=== PATIENT | female | born 1940 | race Caucasian/White ===

== ENCOUNTER 2016-09-25 16:22 | Inpatient (IN) | payer MEDICARE, MEDICAID ==
[2016-09-25] MEDS ORDERED: Haloperidol Lactate 5 mg/mL 1mL Vial IM STA (16:32)
[2016-09-25] MEDS ORDERED: Haloperidol Lactate 5 mg/mL 1mL Vial ONE (16:36)
--- NOTE | 2016-09-25 16:38 | ED Physician Chart ---
Chief Complaint/HPI - Patient Information Date Seen:: 09/25/16 Time Seen:: 16:30 Chief Complaint:: agitation History of Present Illness:: Patient is sent from the care home for agitation to be admitted to [facility] is medically stable. Allergies:: Allergies Allergy/AdvReac Type Severity Reaction Status Date / Time cefazolin [From Ancef] Allergy Verified 09/10/16 18:53 meropenem Allergy Verified 09/10/16 18:53 Penicillins Allergy Verified 09/10/16 18:54 prochlorperazine Allergy Verified 09/10/16 18:53 [From Compazine] Historian:: EMS Review:: Nurse's Note Reviewed Review of Systems - Review of Systems General/Constitutional: No fever, No chills Skin: No skin lesions Head: No headache Eyes: No loss of vision ENT: No earache Neck: No neck pain Cardio Vascular: No chest pain Pulmonary: No SOB GI: No nausea, No vomiting G/U: No dysuria Musculoskeletal: No bone or joint pain Endocrine: No polyuria Psychiatric: Prior psych history Hematopoietic: No bruising Allergic/Immuno: No urticaria Neurological: No syncope Past Medical History - Past Medical History Past Medical History: HTN, DM, CHF, Asthma/COPD, Dementia, Other ( atherosclerotic heart disease; is affective disorder) Family History: Other (unavailable) Social History: Care Facility Surgical History: other (unavailable) Psychiatricy History: Other (schizoaffective disorder) Medication: Reviewed Family Medical History - Family Member Father History Unknown: Yes Ethnicity: Unknown Living Status: Unknown Hx Family Cancer: (UNKNOWN) Hx Family Coronary Artery Disease: (UNKNOWN) Hx Family Congestive Heart Failure: (UNKNOWN) Hx Family Hypertension: (UNKNOWN) Hx Family Stroke: (UNKNOWN) Hx Family Diabetes: (UNKNOWN) Hx Family Seizures: (UNKNOWN) Hx Family Dementia: (UNKNOWN) Hx Family AIDS: (UNKNOWN) Hx Family HIV: No Hx Family COPD: (UNKNOWN) Hx Family Hepatitis: (UNKNOWN) Hx Family Psychiatric Problems: (UNKNOWN) Hx Family Tuberculosis: (UNKNOWN) Mother History Unknown: Yes Ethnicity: Unknown Living Status: Unknown Hx Family Cancer: (unknown) Hx Family Coronary Artery Disease: (unknown) Hx Family Congestive Heart Failure: (unknown) Hx Family Hypertension: (unknown) Hx Family Stroke: (unknown) Hx Family Diabetes: (unknown) Hx Family Seizures: (unknown) Hx Family Dementia: (unknown) Hx Family AIDS: (unknown) Hx Family COPD: (unknown) Hx Family Hepatitis: (unknown) Hx Family Psychiatric Problems: (unknown) Hx Family Tuberculosis: (unknown) Physical Exam - Physical Examination General/Constitutional: Awake, Well-developed, well-nourished, Alert Other Gen/Cons comments:: Yelling, screaming, flailing around on the gurney Head: Atraumatic Eyes: Lids, conjuctiva normal, PERRL Skin: Nl inspection ENMT: External ears, nose nl Neck: No nuchal rigidity Respiratory: Nl effort/Exclusion, Clear to Auscultation Cardio Vascular: RRR GI: No tenderness/rebounding/guarding : No CVA tenderness Extremities: No tenderness or effusion Neuro/Psych: No focal deficits Assessment - Assessment General Assessment: patient refuses all tests ED Septic Shock - . Is Septic Shock (SBP<90, OR Lactate>4 mmol\L) present?: No Reassessment (Disposition) - Reassessment Reassessment Condition:: Improved - Diagnosis Diagnosis:: metabolic encephalopathy; extreme agitation - Patient Disposition Admitted to:: Med/Surg Spoke to:: Yogesh Gallegos Admitting Medical Physician:: Yogesh Gallegos Condition at Disposition:: Stable, Improved
[2016-09-25] MEDS ORDERED: Maalox 30 mL Cup PO PRN (19:29)
[2016-09-25] MEDS ORDERED: Magnesium Hydroxide (MOM) 30 mL UDC PO PRN (19:29)
[2016-09-25] MEDS ORDERED: Atorvastatin Calcium 10 MG TAB PO SCH (21:00)
--- NOTE | 2016-09-25 23:46 | Admit Criteria Form ---
Admit Criteria Forms - Admit Criteria Diagnosis: PSYCHIATRIC DISORDERS (Place 'X' for any and all applicable criteria): Ongoing inpatient care may be needed for 1 or more of the following(1)(2)(3)(4)( 6)(7)(8): [ ]I. Danger to self or others not manageable at lower level of care. [ ]II. Grave disability (eg, inability to perform self care necessary at lower level of care) [X ]III. Agitation or inappropriate behavior interfering with care for primary condition (eg, attempting to discontinue lines or drains prematurely, unable to cooperate with respiratory care) [ ]IV. Severe disability or disorder indicated by ALL of the following: [ ]a) Severe behavioral health disorder-related symptoms or condition indicated by 1 or more of the following: [ ]i) Severe problem with cognition, memory, judgment, or impulse control [ ]ii) Severe clinical manifestations (eg, hallucinations, delusions, other acute psychotic symptoms, mary, extreme agitation or anxiety) [ ]b) Patient management at lower level of care is not feasible until acute intervention or modification is initiated. Extended stay beyond goal length of stay for the primary condition may be needed until ALLof the following are present(1)(2)(3)(4)(722)(23): [ ]a) Danger to self or others is absent or manageable at lower level of care [ ]b) Behavior crisis management, including physical or chemical restraints, is required and is not available at a lower level of care. [ ]c) Behavioral symptoms (e.g., agitation, somnolence, inappropriate behavior) are present, and are not manageable at a lower level of care. [ ]d) Patient cannot understand follow-up treatment and crisis plan. [ ]e) Provider and supports are sufficiently available at lower level of care. [ ]f) Patient can participate (e.g., verify absence of plan for harm) and is in needed of monitoring. The original [facility] Aptible content created by [facility] [employer] has been revised. The portions of the content which have been revised are identified through the use of italic text or in bold, and [facility] [employer] has neither reviewed nor approved the modified material. All other unmodified content is copyright [facility]. Please see references footnoted in the original [facility] edition 2017 Admit Criteria Met?: Yes
[2016-09-25 23:47] LABS: ALB/GLOB RATIO 1.2 (1.0-1.8); ALKALINE PHOSPHATASE 51 U/L (34-104); ANION GAP 6.8 (7.0-16.0); BILIRUBIN,TOTAL 0.4 mg/dL (0.3-1.0); BUN - UREA NITROGEN 20 mg/dL (7-25); CALCIUM SERUM 9.4 mg/dL (8.6-10.3); CARBON DIOXIDE 26.2 mEq/L (21.0-31.0); CHLORIDE 98 mEq/L (98-107); GLUCOSE 108 mg/dL (70-105); SGOT 16 U/L (13-39); SGPT/ALT 10 U/L (7-52); SODIUM SERUM 127 mEq/L (136-145)
[2016-09-25 23:50] LABS: % EOSINOPHILS 1.9 % (0.0-5.0); % LYMPHOCYTES 26.4 % (20.0-50.0); % MONOCYTES 13.3 % (2.0-10.0); % NEUTROPHILS 58.4 % (40.0-80.0); HEMOGLOBIN 11.3 gm/dL (11.7-16.1); MEAN CELL VOLUME 83.3 fl (81-100); MEAN CORPUSCULAR HEMOGLOBIN 28.4 pg (27.0-31.0); MEAN CORPUSCULAR HGB CONC 34.2 pg (28.0-36.0); MEAN PLATELET VOLUME 8.2 fl; NEUTROPHILE ABSOLUTE 3.7 Th/cmm (1.8-8.0); RED BLOOD COUNT 3.95 Mil/cmm (3.80-5.20); RED CELL DISTRIBUTION WIDTH 13.2 % (11.5-20.0); WHITE BLOOD COUNT 6.4 Th/cmm (4.8-10.8)
[2016-09-25 23:58] LABS: HEMATOCRIT 32.9 % (35.0-45.0)
[2016-09-25 23:59] LABS: PLATELET COUNT 88 Th/cmm (150-400)
[2016-09-26] MEDS: Ferrous Sulfate 325 MG TAB PO SCH ×2 (08:55→17:44)
[2016-09-26 11:00] LABS: % BASOPHILS 0.6 % (0.0-2.0); % EOSINOPHILS 1.6 % (0.0-5.0); % LYMPHOCYTES 25.3 % (20.0-50.0); % MONOCYTES 13.5 % (2.0-10.0); HEMATOCRIT 37.7 % (35.0-45.0); HEMOGLOBIN 12.6 gm/dL (11.7-16.1); MEAN CELL VOLUME 86.3 fl (81-100); MEAN CORPUSCULAR HEMOGLOBIN 28.7 pg (27.0-31.0); MEAN CORPUSCULAR HGB CONC 33.3 pg (28.0-36.0); MEAN PLATELET VOLUME 7.3 fl; NEUTROPHILE ABSOLUTE 3.2 Th/cmm (1.8-8.0); RED BLOOD COUNT 4.37 Mil/cmm (3.80-5.20); RED CELL DISTRIBUTION WIDTH 13.3 % (11.5-20.0); WHITE BLOOD COUNT 5.3 Th/cmm (4.8-10.8)
[2016-09-26 11:05] LABS: PLATELET COUNT 111 Th/cmm (150-400)
[2016-09-26 11:12] LABS: ANION GAP 5.4 (7.0-16.0); BUN - UREA NITROGEN 17 mg/dL (7-25); BUN/CREATININE RATIO 18.9; CALCIUM SERUM 9.6 mg/dL (8.6-10.3); CARBON DIOXIDE 29.7 mEq/L (21.0-31.0); CHLORIDE 100 mEq/L (98-107); CREATININE - SERUM 0.9 mg/dL (0.6-1.2); GLUCOSE 133 mg/dL (70-105); POTASSIUM SERUM 4.1 mEq/L (3.5-5.1); SODIUM SERUM 131 mEq/L (136-145)
[2016-09-26] MEDS ORDERED: VTE Chemical Prophylaxis Screen/Admission MC PRN (14:46)
[2016-09-26 22:35] LABS: URINE BILIRUBIN NEGATIVE (NEGATIVE); URINE BLOOD NEGATIVE (NEGATIVE); URINE COLOR YELLOW; URINE GLUCOSE (UA) NEGATIVE (NEGATIVE); URINE KETONE NEGATIVE (NEGATIVE); URINE PH 6.5; URINE PROTEIN NEGATIVE (NEGATIVE); URINE UROBILINOGEN 0.2 E.U./dL (0.2 - 1.0)
[2016-09-26 22:36] LABS: URINE BACTERIA MODERATE /hpf (NONE SEEN); URINE EPITHELIAL CELLS FEW /lpf (FEW); URINE RBC 0-2 /hpf (0-5)
[2016-09-27] MEDS: Ferrous Sulfate 325 MG TAB PO SCH ×2 (10:07→17:10)
[2016-09-28] MEDS: Ferrous Sulfate 325 MG TAB PO SCH ×2 (09:48→17:57)
[2016-09-29] MEDS: Ferrous Sulfate 325 MG TAB PO SCH (08:12)
--- NOTE | 2016-09-29 14:50 | General Progress Note ---
Objective - Results Result Diagrams: 09/26/16 10:45 09/26/16 10:45 Recent Labs: Laboratory Last Values WBC 5.3 Th/cmm (4.8-10.8) 09/26/16 10:45 RBC 4.37 Mil/cmm (3.80-5.20) 09/26/16 10:45 Hgb 12.6 gm/dL (11.7-16.1) 09/26/16 10:45 Hct 37.7 % (35.0-45.0) D 09/26/16 10:45 MCV 86.3 fl (81-100) 09/26/16 10:45 MCH 28.7 pg (27.0-31.0) 09/26/16 10:45 MCHC Differential 33.3 pg (28.0-36.0) 09/26/16 10:45 RDW 13.3 % (11.5-20.0) 09/26/16 10:45 Plt Count 111 Th/cmm (150-400) L D 09/26/16 10:45 MPV 7.3 fl 09/26/16 10:45 Neutrophils % 59.0 % (40.0-80.0) 09/26/16 10:45 Lymphocytes % 25.3 % (20.0-50.0) 09/26/16 10:45 Monocytes % 13.5 % (2.0-10.0) H 09/26/16 10:45 Eosinophils % 1.6 % (0.0-5.0) 09/26/16 10:45 Basophils % 0.6 % (0.0-2.0) 09/26/16 10:45 Sodium 131 mEq/L (136-145) L 09/26/16 10:45 Potassium 4.1 mEq/L (3.5-5.1) 09/26/16 10:45 Chloride 100 mEq/L (98-107) 09/26/16 10:45 Carbon Dioxide 29.7 mEq/L (21.0-31.0) 09/26/16 10:45 Anion Gap 5.4 (7.0-16.0) L 09/26/16 10:45 BUN 17 mg/dL (7-25) 09/26/16 10:45 Creatinine 0.9 mg/dL (0.6-1.2) 09/26/16 10:45 Est GFR ( Amer) TNP 09/26/16 10:45 Est GFR (Non-Af Amer) TNP 09/26/16 10:45 BUN/Creatinine Ratio 18.9 09/26/16 10:45 Glucose 133 mg/dL (70-105) H 09/26/16 10:45 Calcium 9.6 mg/dL (8.6-10.3) 09/26/16 10:45 Total Bilirubin 0.4 mg/dL (0.3-1.0) 09/25/16 23:00 AST 16 U/L (13-39) 09/25/16 23:00 ALT 10 U/L (7-52) 09/25/16 23:00 Alkaline Phosphatase 51 U/L (34-104) 09/25/16 23:00 Total Protein 6.1 gm/dL (6.0-8.3) 09/25/16 23:00 Albumin 3.3 gm/dL (3.7-5.3) L 09/25/16 23:00 Globulin 2.8 gm/dL 09/25/16 23:00 Albumin/Globulin Ratio 1.2 (1.0-1.8) 09/25/16 23:00 TSH 1.82 uIU/ml (0.34-5.60) 09/25/16 23:00 Urine Source RANDOM 09/26/16 22:00 Urine Color YELLOW 09/26/16 22:00 Urine Clarity SLIGHT HAZY (CLEAR) 09/26/16 22:00 Urine pH 6.5 09/26/16 22:00 Ur Specific [place] 1.020 (1.005-1.030) 09/26/16 22:00 Urine Protein NEGATIVE mg/dL (NEGATIVE) 09/26/16 22:00 Urine Glucose (UA) NEGATIVE mg/dL (NEGATIVE) 09/26/16 22:00 Urine Ketones NEGATIVE mg/dL (NEGATIVE) 09/26/16 22:00 Urine Blood NEGATIVE (NEGATIVE) 09/26/16 22:00 Urine Nitrate NEGATIVE (NEGATIVE) 09/26/16 22:00 Urine Bilirubin NEGATIVE (NEGATIVE) 09/26/16 22:00 Urine Urobilinogen 0.2 E.U./dL (0.2 - 1.0) 09/26/16 22:00 Ur Leukocyte Esterase TRACE (NEGATIVE) H 09/26/16 22:00 Urine RBC 0-2 /hpf (0-5) 09/26/16 22:00 Urine WBC 10-25 /hpf (0-5) H 09/26/16 22:00 Ur Epithelial Cells FEW /lpf (FEW) 09/26/16 22:00 Urine Bacteria MODERATE /hpf (NONE SEEN) 09/26/16 22:00 RPR NONREACTIVE (NONREACTIVE) 09/25/16 23:00 - Physical Exam Vitals and I&O: Vital Signs Temp 97.7 F 09/29/16 13:51 Pulse 67 09/29/16 13:51 Resp 19 09/29/16 13:51 BP 110/45 09/29/16 13:51 Pulse Ox 98 09/29/16 13:51 Intake & Output 09/28/16 09/29/16 09/29/16 18:59 06:59 18:59 Intake Total 780 Balance 780 Weight (lbs) 98.883 kg 100.244 kg Intake: Oral 780 Other: # Voids 3 # Bowel Movements 0 Active Medications: Current Medications Acetaminophen (Tylenol) 650 mg PO Q4HR PRN PRN Reason: pain Stop: 11/24/16 19:28 Last Admin: 09/28/16 21:19 Dose: 650 mg Al Hydrox/Mg Hydrox/Simethicone (Maalox) 30 ml PO Q4HR PRN PRN Reason: GI DISTRESS Stop: 11/24/16 19:28 Benztropine Mesylate (Cogentin) 0.5 mg PO TID [facility] Stop: 11/24/16 20:59 Last Admin: 09/29/16 13:15 Dose: 0.5 mg Bisacodyl (Dulcolax 10 Mg Supp) 10 mg RC DAILY PRN PRN Reason: Constipation Stop: 11/24/16 19:28 Divalproex Sodium (Depakote Dr) 500 mg PO BID [facility] Stop: 11/25/16 08:59 Last Admin: 09/29/16 08:10 Dose: 500 mg Docusate Sodium (Colace) 250 mg PO DAILY [facility] Stop: 11/25/16 08:59 Last Admin: 09/29/16 08:10 Dose: 250 mg Enalapril Maleate (Vasotec) 5 mg PO DAILY [facility] Stop: 11/25/16 08:59 Last Admin: 09/29/16 08:19 Dose: 5 mg Ferrous Sulfate (Iron) 325 mg PO BID JESUS Stop: 11/25/16 08:59 Last Admin: 09/29/16 08:12 Dose: 325 mg Furosemide (Lasix) 40 mg PO DAILY JESUS Stop: 11/25/16 08:59 Last Admin: 09/29/16 08:12 Dose: 40 mg Heparin Sodium (Porcine) (Heparin) 5,000 units SUBQ Q12HR JESUS Stop: 11/27/16 08:59 Last Admin: 09/29/16 08:10 Dose: 5,000 units Lorazepam (Ativan) 1 mg IVP Q4HR PRN; Protocol PRN Reason: Anxiety Stop: 11/24/16 19:28 Magnesium Hydroxide (Milk Of Magnesia) 30 ml PO HS PRN PRN Reason: Constipation Stop: 11/24/16 19:28 Memantine (Namenda) 5 mg PO BID JESUS Stop: 11/25/16 08:59 Last Admin: 09/29/16 08:12 Dose: 5 mg Miscellaneous (Vte Chemical Prophylaxis Screen/ Admission) 1 ea MC PRN PRN PRN Reason: PROTOCOL Stop: 11/25/16 14:45 Miscellaneous (Clinical Monitoring) 1 ea MC DAILY PRN PRN Reason: ON HEPARIN Stop: 11/25/16 14:45 Risperidone (Risperdal) 2 mg PO BID JESUS PRN Reason: Protocol Stop: 11/25/16 08:59 Last Admin: 09/29/16 08:11 Dose: 2 mg Simvastatin (Zocor) 20 mg PO HS JESUS Stop: 11/24/16 20:59 Last Admin: 09/28/16 21:00 Dose: 20 mg Trazodone HCl (Desyrel) 25 mg PO HS JESUS PRN Reason: Protocol Stop: 11/24/16 20:59 Last Admin: 09/28/16 21:00 Dose: 25 mg - Procedures Procedures: Procedures Procedure Code Date GROUP PSYCHOTHERAPY 48269 04/24/15 GROUP PSYCHOTHERAPY [id number] 04/24/15 OTHER GROUP THERAPY 94.44 07/06/14 Assessment/Plan - Problem List Patient Problems: All Active Problems Arthritis (Acute) M19.90 Arthritis associated with another disorder (Acute) M19.90 Ataxia (Acute) R27.0 CHF (congestive heart failure) (Acute) I50.9 DELUSIONAL AND LABILE BEHAVIOR (Acute) Dementia (Acute) F03.90 Diabetes (Acute) E11.9 Difficulty in walking (Acute) R26.2 Disorder of joint (Acute) M25.9 GERD (gastroesophageal reflux disease) (Acute) K21.9 Hyperlipidemia (Acute) E78.5 Hypertension (Acute) I10 Schizoaffective disorder (Acute) F25.9 Seizure (Acute)
== END 2016-09-29 18:00 | DRG 640 ==
LOC: ER 16:22 → MSI 18:08
PROVIDERS: ADMIT Internal Medicine; ATTEND Internal Medicine
DX: E87.1 Hypo-osmolality and hyponatremia (principal); G93.41 Metabolic encephalopathy; I50.9 Heart failure, unspecified; I11.0 Hypertensive heart disease with heart failure; F03.90 Unspecified dementia, unspecified severity, without behavioral disturbance, psychotic disturbance, mood disturbance, and anxiety; J44.9 Chronic obstructive pulmonary disease, unspecified; E11.9 Type 2 diabetes mellitus without complications; I25.10 Atherosclerotic heart disease of native coronary artery without angina pectoris; F25.8 Other schizoaffective disorders; M19.90 Unspecified osteoarthritis, unspecified site; K21.9 Gastro-esophageal reflux disease without esophagitis; E78.5 Hyperlipidemia, unspecified; Z88.0 Allergy status to penicillin; Z88.1 Allergy status to other antibiotic agents; Z88.8 Allergy status to other drugs, medicaments and biological substances
CPT/HCPCS: 36415-UA; 80048-TC; 80053-TC; 81001-TC; 84443-TC; 85025-TC; 86592-TC; 87086-90; 93005; J1200; J1630; J1644; J2060; Z7610

== ENCOUNTER 2018-01-05 14:03 | Inpatient (IN) | payer MEDICARE, MEDICAID ==
--- NOTE | 2018-01-05 14:23 | ED Physician Chart ---
ED Chief Complaint/HPI - Patient Information Date Seen:: 01/05/18 Time Seen:: 14:10 Chief Complaint:: Agitation History of Present Illness:: onset x 3 days of agitation and hostile/aggressive behavior; no report of SIs, trauma, H/As, neck pain, C/P, SOB, Abd. Pain, A/N/V/D/C, fever, chills, or urinary s/s Allergies:: Allergies Allergy/AdvReac Type Severity Reaction Status Date / Time cefazolin [From Ancef] Allergy Verified 09/10/16 18:53 meropenem Allergy Verified 09/10/16 18:53 Penicillins Allergy Verified 09/10/16 18:54 prochlorperazine Allergy Verified 09/10/16 18:53 [From Compazine] Historian:: Patient, EMS Review:: Nurse's Note Reviewed, Old Chart Reviewed, EMS run form Reviewed ED Review of Systems - Review of Systems General/Constitutional: No fever, No chills, No weight loss, No weakness, No diaphoresis, No edema, No loss of appetite Skin: No skin lesions, No rash, No bruising Head: No headache, No light-headedness Eyes: No loss of vision, No pain, No diplopia ENT: No earache, No nasal drainage, No sore throat, No tinnitus Neck: No neck pain, No swelling, No thyromegaly, No stiffness, No mass noted Cardio Vascular: No chest pain, No palpitations, No PND, No orthopnea, No edema Pulmonary: No SOB, No cough, No sputum, No wheezing GI: No nausea, No vomiting, No diarrhea, No pain, No melena, No hematochezia, No constipation, No hematemesis G/U: No dysuria, No frequency, No hematuria, No nacturia Milk Collector: No vaginal discharge, No abnormal vaginal bleed, No contraction Musculoskeletal: No bone or joint pain, No back pain, No muscle pain Endocrine: No polyuria, No polydipsia Psychiatric: Prior psych history, No depression, Anxiety, No suicidal ideation, No homicidal ideation, No auditory hallucination, No visual hallucination Hematopoietic: No bruising, No lymphadenopathy Allergic/Immuno: No urticaria, No angioedema Neurological: No syncope, No focal symptoms, No weakness, No paresthesia, No headache, No seizure, No dizziness, No confusion, No vertigo ED Past Medical History - Past Medical History Obtainable: Yes Past Medical History: HTN, Dyslipidemia Family History: HTN Social History: Non Smoker, No Alcohol, No Drug Use, Single, Care Facility Surgical History: None Psychiatricy History: Bipolar Medication: Reviewed Family Medical History - Family Member Father History Unknown: Yes Ethnicity: Unknown Living Status: Unknown Hx Family Cancer: (UNKNOWN) Hx Family Coronary Artery Disease: (UNKNOWN) Hx Family Congestive Heart Failure: (UNKNOWN) Hx Family Hypertension: (UNKNOWN) Hx Family Stroke: (UNKNOWN) Hx Family Diabetes: (UNKNOWN) Hx Family Seizures: (UNKNOWN) Hx Family Dementia: (UNKNOWN) Hx Family AIDS: (UNKNOWN) Hx Family HIV: No Hx Family COPD: (UNKNOWN) Hx Family Hepatitis: (UNKNOWN) Hx Family Psychiatric Problems: (UNKNOWN) Hx Family Tuberculosis: (UNKNOWN) Mother History Unknown: Yes Ethnicity: Unknown Living Status: Unknown Hx Family Cancer: (unknown) Hx Family Coronary Artery Disease: (unknown) Hx Family Congestive Heart Failure: (unknown) Hx Family Hypertension: (unknown) Hx Family Stroke: (unknown) Hx Family Diabetes: (unknown) Hx Family Seizures: (unknown) Hx Family Dementia: (unknown) Hx Family AIDS: (unknown) Hx Family COPD: (unknown) Hx Family Hepatitis: (unknown) Hx Family Psychiatric Problems: (unknown) Hx Family Tuberculosis: (unknown) ED Physical Exam - Physical Examination General/Constitutional: Awake, Well-developed, well-nourished, Alert, No distress, GCS 15, Non-toxic appearing, Ambulatory Head: Atraumatic Eyes: Lids, conjuctiva normal, PERRL, EOMI Skin: Nl inspection, No rash, No skin lesions, No ecchymosis, Well hydrated, No lymphadenopathy ENMT: External ears, nose nl, Nasal exam nl, Lips, teeth, gums nl Neck: Nontender, Full ROM w/o pain, No JVD, No nuchal rigidity, No bruit, No mass, No stridor Respiratory: Nl effort/Exclusion, Clear to Auscultation, No Wheeze/Rhonchi/Rales Cardio Vascular: RRR, No murmur, gallop, rubs, NL S1 S2, Carotid/Femoral/Distal pulses equal bilaterally GI: No tenderness/rebounding/guarding, No organomegaly, No hernia, Normal BS's, Nondistended, No mass/bruits, No McBurney tenderness : No CVA tenderness Extremities: No tenderness or effusion, Full ROM, normal strength in all extremities, No edema, Normal digits & nails Neuro/Psych: Alert/oriented, DTR's symmetric, Normal sensory exam, Normal motor strength, Judgement/insight normal, Mood normal, Normal gait, No focal deficits Other Neuro/Psych comments:: + Psychomotor Agitation; no SIs; Mood/Affect: Labile Misc: Normal back, No paraspinal tenderness ED Labs/Radiology/EKG Results - Lab Results Comments:: Reviewed - EKG Interpretations EKG Time:: 14:45 Rate & Rhythm: 76; NSR Comments:: non-specific st-t changes ED Septic Shock - . Is Septic Shock (SBP<90, OR Lactate>4 mmol\L) present?: No ED Reassessment (Disposition) - Reassessment Reassessment Condition:: Improved - Diagnosis Diagnosis:: Agitation; Medical Clearance; Psychosis; Bipolar Disorder - Aftercare/Follow up Instructions Aftercare/Follow-Up Instructions:: Counseled pt regarding lab results/diagnosis & need follow up, Counseled pt & family regarding lab results/diagnosis & need follow up - Patient Disposition Discharge/Transfer:: Acute Care w/in this hosp Admitted to:: [facility] Condition at Disposition:: Stable, Improved
[2018-01-05 14:40] LABS: % BASOPHILS 0.5 % (0.0-2.0); % EOSINOPHILS 2.1 % (0.0-5.0); % LYMPHOCYTES 24.8 % (20.0-50.0); % MONOCYTES 9.3 % (2.0-10.0); % NEUTROPHILS 63.3 % (40.0-80.0); EOSINOPHILE ABSOLUTE 0.1 Th/cmm (0.1-0.4); HEMATOCRIT 36.1 % (41.0-60); HEMOGLOBIN 12.2 gm/dL (12-16); LYMPHOCYTE ABSOLUTE 1.3 Th/cmm (1.5-3.0); MEAN CELL VOLUME 89.3 fl (81-100); MEAN CORPUSCULAR HGB CONC 33.6 pg (28.0-36.0); MEAN PLATELET VOLUME 7.2 fl; MONOCYTE ABSOLUTE 0.5 Th/cmm (0.3-1.0); NEUTROPHILE ABSOLUTE 3.5 Th/cmm (1.8-8.0); PLATELET COUNT 140 Th/cmm (150-400); RED BLOOD COUNT 4.05 Mil/cmm (3.80-5.20); RED CELL DISTRIBUTION WIDTH 12.3 % (11.5-20.0); WHITE BLOOD COUNT 5.4 Th/cmm (4.8-10.8)
[2018-01-05 15:01] LABS: ACETAMINOPHEN < 10.0 ug/mL (10.0-30.0); ALB/GLOB RATIO 1.3 (1.0-1.8); ALBUMIN 3.9 gm/dL (3.7-5.3); ALKALINE PHOSPHATASE 51 U/L (34-104); ANION GAP 10.9 (7.0-16.0); BILIRUBIN,TOTAL 0.3 mg/dL (0.3-1.0); BUN - UREA NITROGEN 24 mg/dL (7-25); CALCIUM SERUM 9.5 mg/dL (8.6-10.3); CARBON DIOXIDE 28.1 mEq/L (21.0-31.0); CHLORIDE 98 mEq/L (98-107); CHOLESTEROL 132 mg/dL (<200); CREATININE - SERUM 0.9 mg/dL (0.6-1.2); GLUCOSE 121 mg/dL (70-105); HDL -HIGH DENSITY LIPOPROTEIN 61 mg/dL (23-92); SALICYLATES (ASPIRIN) < 25.0 mg/L (30.0-100.0); SGOT 16 U/L (13-39); SGPT/ALT 11 U/L (7-52); SODIUM SERUM 133 mEq/L (136-145); TRIGLYCERIDES 57 mg/dL (<150)
[2018-01-05 16:15] VITALS: BP 109/77
[2018-01-05] MEDS ORDERED: Maalox 30 mL Cup PO PRN (16:15)
[2018-01-05] MEDS ORDERED: Fleet Enema 135 mL RC PRN (16:24)
[2018-01-05] MEDS ORDERED: Magnesium Hydroxide (MOM) 30 mL UDC PO PRN (16:24)
[2018-01-05 16:27] LABS: URINE SOURCE CLEAN C
[2018-01-05 16:33] LABS: URINE BILIRUBIN NEGATIVE (NEGATIVE); URINE BLOOD NEGATIVE (NEGATIVE); URINE GLUCOSE (UA) NEGATIVE (NEGATIVE); URINE KETONE NEGATIVE (NEGATIVE); URINE LEUKOCYTE ESTERASE SMALL (NEGATIVE); URINE NITRATE NEGATIVE (NEGATIVE); URINE PROTEIN NEGATIVE (NEGATIVE); URINE UROBILINOGEN 0.2 E.U./dL (0.2 - 1.0)
[2018-01-05 16:39] LABS: URINE CLARITY CLEAR (CLEAR); URINE COLOR YELLOW; URINE MICROSCOPIC INDICATED? YES
[2018-01-05 16:40] LABS: URINE EPITHELIAL CELLS MODERATE /lpf (FEW); URINE RBC 0-2 /hpf (0-5)
[2018-01-05 16:41] LABS: URINE BACTERIA 1+ /hpf (NONE SEEN)
[2018-01-05 16:56] LABS: AMPHETAMINE URINE NEGATIVE (NEGATIVE); BARBITURATES URINE NEGATIVE (NEGATIVE); BENZODIAZEPINES QUAL URINE POSITIVE (NEGATIVE); CANNABINOID THC NEGATIVE (NEGATIVE); COCAINE METABOLITE QUAL URINE NEGATIVE (NEGATIVE); METHADONE URINE NEGATIVE (NEGATIVE); METHAMPHETAMINES QUAL URINE NEGATIVE (NEGATIVE); OPIATES (MORPHINE) QUAL. URINE NEGATIVE (NEGATIVE); PHENCYCLIDINE (PCP) URINE NEGATIVE (NEGATIVE); TRICYCLICS (TCA) QUAL. URINE NEGATIVE (NEGATIVE)
[2018-01-05] MEDS: Atorvastatin Calcium 10 MG TAB PO SCH (20:39)
--- NOTE | 2018-01-05 21:08 | History & Physical ---
ADMIT DATE: 01/05/2018 INTERNAL MEDICINE CONSULTATION HISTORY OF PRESENT ILLNESS: The patient is a 77-year-old female, the patient of mine. CURRENT MEDICAL PROBLEMS: Include CHF, COPD, hypertension, coronary artery disease, hyperlipidemia, peptic ulcer disease, arthritis, osteoporosis. SOCIAL HISTORY: No current history of smoking or alcohol abuse. FAMILY HISTORY: Not available. REVIEW OF SYSTEMS: Minimal short of breath. No nausea, no vomiting, no abdominal pain. Extensive arthritic pain. PHYSICAL EXAMINATION: GENERAL: Average female, in no obvious respiratory distress. VITAL SIGNS: Include a blood pressure 140/80, heart rate 80, respiration rate of 18. SKIN: Show no cellulitis. HEENT: Normal conjunctivae. NECK: Supple. LUNGS: Show occasional rhonchi, occasional crepitation, no bronchial breathing. CARDIOVASCULAR SYSTEM: First and second heart sounds are normal. No gallops. Systolic present. ABDOMEN: Soft, minimal epigastric. Bowel sounds are present and good. EXTREMITIES: Show arthritis. NEUROLOGIC: The patient has dementia. LABORATORY DATA: White count 5.4, hemoglobin 12.2, hematocrit 36.1, platelet of 140. Sodium 133, potassium 4, chloride 98, bicarbonate 28.1, BUN 24, creatinine 0.9, blood sugar of 121. Urine is negative. LFTs are normal. MEDICAL DIAGNOSES: As I dictated above. MEDICATIONS: Current medicine include Tylenol, Maalox, Lipitor, Cogentin, Dulcolax, Depakote, Colace, Vasotec, iron supplementation, and Lasix. JOB# [id number]
[2018-01-06] MEDS: Ferrous Sulfate 325 MG TAB PO SCH ×2 (08:52→16:51)
[2018-01-06] MEDS: Multivitamin Tab PO SCH (08:53)
[2018-01-06] MEDS: Atorvastatin Calcium 10 MG TAB PO SCH (20:29)
--- NOTE | 2018-01-06 22:56 | Progress Notes ---
DATE: 01/06/2018 INTERNAL MEDICINE CONSULTATION FOLLOWUP SUBJECTIVE: The patient is a 77-year-old female. Current medical problems include diabetes mellitus, COPD, CHF, hypertension, coronary artery disease, arthritis, peptic ulcer disease. CHIEF COMPLAINT: No new symptoms. OBJECTIVE: VITAL SIGNS: Stable. LUNGS: Show occasional rhonchi, occasional crepitation, no bronchial breathing. HEART EXAM: Frist and second heart sound are normal. No gallops. Systolic present. ABDOMEN: Soft. Bowel sounds are present and good. EXTREMITIES: Arthritis. NEUROLOGICAL: Dementia. PLAN: Continue current medical management. Psych consult reviewed. JOB# [id number]
--- NOTE | 2018-01-07 01:51 | Psychiatric Evaluation ---
DATE OF SERVICE: 01/06/2018 IDENTIFYING DATA: The patient is a 77-year-old woman, resident of [facility]. Information obtained directly interviewing the patient as well as reviewing the admission papers. JUSTIFICATION FOR HOSPITALIZATION: The patient is admitted on a voluntary basis in view of her acute agitation, screaming, and yelling. The patient could not be contained at a lower level of care. The patient prior to the hospitalization has been irritable and angry and has not been able to follow the directions. The patient has been diagnosed to have schizoaffective disorder and has been treated in here before with Depakote and risperidone. The patient is currently on 2.5 mg twice a day of the risperidone and also the patient has been on the Depakote 250 mg twice a day. The patient has been having difficult time with the coping skills. The patient is screaming and yelling, during the evaluation, the patient has not been able to follow the directions. PAST PSYCHIATRIC HISTORY: Please refer to the above. MEDICAL HISTORY: Physical examination is requested to be done by Dr. Gallegos. SUBSTANCE ABUSE HISTORY: None. PHYSICAL OR SEXUAL ABUSE HISTORY: None. LEGAL PROBLEMS: None at this time. STRENGTH AND ASSETS: The patient is motivated. MENTAL STATUS EXAMINATION: The patient is a 77-year-old, looking her stated age, superficially cooperative. Eye contact is poor. Mood is noted to be irritable. Affect is constricted. The patient is screaming and yelling at this time. The patient has been having difficult time to cope with the stress. The patient is very paranoid. Acute mood swings are noted. Short term memory is noted to be poor. Long-term memory seems to be fair at this time. Attention span and concentration are noted to be poor. The patient's behavior is clear danger to self and others. The patient is very paranoid and has been closing her ears and screaming and running away in the wheelchair. DIAGNOSTIC IMPRESSION: AXIS I: Schizoaffective disorder. AXIS II: None. AXIS III: As per Dr. Gallegos. IMMEDIATE TREATMENT PLAN: The patient is going to be observed on the inpatient unit, provided with supportive psychotherapy. The patient is going to be closely monitored. Once stabilized, the patient is going to be discharged to [facility] to be followed up on an outpatient basis. JOB# [id number]
[2018-01-07] MEDS: Ferrous Sulfate 325 MG TAB PO SCH ×2 (08:45→17:15)
[2018-01-07] MEDS: Multivitamin Tab PO SCH (08:48)
--- NOTE | 2018-01-07 18:17 | Progress Notes ---
DATE: 01/07/2018 INTERNAL MEDICINE CONSULTATION FOLLOWUP SUBJECTIVE: The patient is a 77-year-old female, current medical problems include diabetes mellitus, COPD, CHF, hypertension, coronary artery disease, peptic ulcer, gastritis, and arthritis. CHIEF COMPLAINT: No new symptoms. Blood sugars are stable. OBJECTIVE: VITAL SIGNS: Stable. LUNGS: Show occasional rhonchi, occasional crepitation, no bronchial breathing. HEART: First and second heart sounds normal. No gallop. Systolic present. ABDOMEN: Soft. Bowel sounds are good. EXTREMITIES: Show arthritis. NEUROLOGIC: The patient has dementia. Continue current medical treatments. Psych consult reviewed. JOB# [id number]
[2018-01-07] MEDS: Atorvastatin Calcium 10 MG TAB PO SCH (21:07)
--- NOTE | 2018-01-07 22:20 | Progress Notes ---
DATE: 01/07/2018 PSYCHIATRIC PROGRESS NOTE SUBJECTIVE: Staff was spoken to. The patient is interviewed. Mood is noted to be irritable. Affect is constricted. Insight and judgment are noted to be still impaired. Impulse control is noted to be poor. The patient is screaming and yelling. The patient is going to be given a dose of Zyprexa and Benadryl at this time. The patient continues to be very paranoid. The patient has been currently on 2 mg twice a day of the Risperdal and has been able to tolerate the medication. ASSESSMENT: The patient is still grossly psychotic. PLAN: To continue the patient with the supportive therapy and followup. JOB# [id number]
[2018-01-08] MEDS: Multivitamin Tab PO SCH (09:05)
[2018-01-08] MEDS: Ferrous Sulfate 325 MG TAB PO SCH ×2 (09:05→17:22)
[2018-01-08] MEDS: Atorvastatin Calcium 10 MG TAB PO SCH (20:42)
--- NOTE | 2018-01-08 22:50 | Progress Notes ---
DATE: 01/08/2018 INTERNAL MEDICINE CONSULTATION FOLLOWUP SUBJECTIVE: The patient is a 77-year-old female. Current medical problems include diabetes mellitus, angiopathy, neuropathy, COPD, CHF, hypertension, coronary artery disease, peptic ulcer disease, gastritis, arthritis. No new symptoms. OBJECTIVE: VITAL SIGNS: Stable. LUNGS: Clear. HEART: First and second heart sounds normal. No gallop. Systolic present. ABDOMEN: Soft. Bowel sounds are present and good. EXTREMITIES: Show arthritis. NEUROLOGIC: The patient has dementia. PLAN: Continue current medical management. Psych consult reviewed. JOB# [id number]
--- NOTE | 2018-01-09 06:10 | Progress Notes ---
DATE: 01/08/2018 SUBJECTIVE: Staff was spoken to. The patient is interviewed. Mood is noted to be irritable. Affect is constricted. Insight and judgment at this time are noted to be still impaired. The patient is screaming and yelling. The patient has no insight into her illness. The patient needs to be redirected. The patient has been on 250 mg twice a day of the Depakote and the patient is also getting the risperidone 2 mg twice a day. In view of her acute mood swings and impulsivity, the Depakote is going to be changed to 500 mg twice a day and the patient is going to be followed up with the supportive therapy. ASSESSMENT: The patient is still grossly psychotic and impulsive. PLAN: To continue the patient with supportive therapy and followup. [facility]# [id number]
[2018-01-09] MEDS: Multivitamin Tab PO SCH (08:40)
[2018-01-09] MEDS: Ferrous Sulfate 325 MG TAB PO SCH ×2 (08:42→17:51)
[2018-01-09] MEDS: Atorvastatin Calcium 10 MG TAB PO SCH (20:58)
--- NOTE | 2018-01-09 21:35 | Progress Notes ---
DATE: 01/09/2018 SUBJECTIVE: Staff was spoken to. The patient is interviewed. Mood is noted to be irritable. Affect is constricted. Insight and judgment at this time are noted to be still impaired. Impulse control is noted to be limited. The patient has been screaming and yelling. The patient has no insight into her illness. The patient's coping skills at this time are noted to be very poor. The patient is currently on risperidone and Depakote and has been able to tolerate the medications. ASSESSMENT: The patient is still impulsive and psychotic. PLAN: To continue the patient with supportive therapy and follow. JOB# [id number]
--- NOTE | 2018-01-10 00:05 | Consultation ---
DATE OF CONSULTATION: 01/08/2018 REFERRING PHYSICIAN: Brunilda Darnell M.D. TYPE OF CONSULTATION: Psychology. HISTORY OF PRESENT ILLNESS: The patient is a 77-year-old female. The patient is a resident of [facility]. The following is by record review and by patient's self report. The patient is being admitted due to acute agitation as well as yelling episodes. Staff at the patient's facility report that she had become irritable, angry, and unable to follow through with staff directions. Upon interview, the patient continues to have intermittent yelling episodes and is guarded as well as suspicious. The patient is not following the instructions for cognitive refocusing. Continuing clinical interviewing will be followed up as the patient is declining to answer. The patient did not answer questions about experiencing suicidal ideation, plan, or intention. PAST MEDICAL HISTORY: Please see history and physical by Dr. Gallegos. PAST PSYCHIATRIC HISTORY: The patient has a history of schizoaffective disorder. The patient is under the care of a psychiatrist at her placement. The patient has had previous hospitalizations. SUBSTANCE ABUSE HISTORY: None. PSYCHOSOCIAL HISTORY: The patient did not answer questions about occupational or educational history or buddhism affiliation. She did not answer questions about history and physical or sexual abuse. She did not answer questions about current legal problems or family history or family relationships or current support system. MENTAL STATUS EXAMINATION: The patient appears to be her stated age. The patient's attitude is superficially cooperative. Eye contact is poor. Mood is irritable. Affect is constricted. Speech is intermittently yelling and then becoming selectively mute. Thought process shows to include loose associations. There are apparent mood fluctuations and the patient seems to be experiencing paranoid ideation. The patient continues to be guarded and suspicious throughout the clinical interview and mental status examination. The patient's behavior has been difficult to redirect. Impulse control is impaired. Concentration is poor. The patient did not participate in the memory assessment. Immediate memory and short term memory appear to be impaired. Long-term memory needs further evaluation. Sensorium is alert and oriented to self and place only. The patient did not participate in the interpretation of proverbs. Insight is poor. Judgment is impaired. DIAGNOSTIC IMPRESSION: AXIS I: History of schizoaffective disorder. AXIS II: Deferred. AXIS III: Per Dr. Gallegos. TREATMENT PLAN: The patient has been seen by Dr. aDrnell for psychiatric evaluation and for the management of the patient's psychotropic medications. We will provide supportive psychotherapy to include reality orientation, differentiation, and integration. We will provide de-escalation as well as limit setting for the patient to become behaviorally redirectable and respond to staff direction. We will provide coping strategies for phase of life issues. We will encourage the patient to be able to demonstrate emotional and self-regulation prior to her discharge. We will provide coping strategies for chronic severe mental illness as well. Thank you, Dr. Darnell, for this consult and the opportunity to participate in this patient's care. JOB# [id number] EDGARDO
--- NOTE | 2018-01-10 06:04 | Progress Notes ---
DATE: 01/09/2018 INTERNAL MEDICINE CONSULTATION FOLLOWUP SUBJECTIVE: The patient is a 77-year-old female. Current medical problems include diabetes mellitus, COPD, CHF, hypertension, coronary artery disease, peptic ulcer disease, arthritis. No new symptoms. Blood sugars are stable. No vomiting, no diarrhea. OBJECTIVE: LUNGS: Clear. HEART: First and second heart sounds normal. No gallops. Systolic present. ABDOMEN: Soft, minimal epigastric tenderness. Bowel sounds are present and good. EXTREMITIES: Show arthritis. NEUROLOGIC: The patient has dementia. PLAN: Continue current medical management. Psych consult reviewed. JOB# [id number]
[2018-01-10] MEDS: Multivitamin Tab PO SCH (08:42)
[2018-01-10] MEDS: Ferrous Sulfate 325 MG TAB PO SCH ×3 (08:43→16:31)
--- NOTE | 2018-01-10 11:19 | Progress Notes ---
DATE: 01/10/2018 PSYCHIATRIC PROGRESS NOTE PROGRESS ON THE UNIT: Staff was spoken to. The patient is interviewed. Mood is noted to be irritable. Affect is constricted. The patient continues to be screaming and yelling. Insight and judgment at this time are noted to be still impaired. Impulse control is noted to be limited. The patient has been having difficult time to cope with the stress. The patient is currently on 2 mg twice a day of Risperdal and the patient is also on 1000 mg of Depakote a day. ASSESSMENT: The patient is still having mood swings and constantly screaming and yelling. PLAN: To continue the patient with current medications and followup. JOB# [id number]
[2018-01-10] MEDS: Atorvastatin Calcium 10 MG TAB PO SCH (20:32)
--- NOTE | 2018-01-11 03:05 | Progress Notes ---
DATE: 01/10/2018 INTERNAL MEDICINE CONSULTATION FOLLOWUP HISTORY OF PRESENT ILLNESS: A 77-year-old female, current medical problems include diabetes mellitus, COPD, CHF, hypertension, coronary artery disease, peptic ulcer, gastritis, and arthritis. No new symptoms. OBJECTIVE: VITAL SIGNS: Stable. LUNGS: Show occasional rhonchi, occasional crepitation, no bronchial breathing. HEART: First and second heart sounds normal. No gallop. Systolic present. ABDOMEN: Soft, minimal epigastric tenderness. Bowel sounds are good. EXTREMITIES: Show arthritis. NEUROLOGIC: The patient has advanced dementia. PLAN: Continue current medical management. Psych consult reviewed. JOB# [id number]
[2018-01-11] MEDS: Ferrous Sulfate 325 MG TAB PO SCH ×2 (08:34→17:19)
[2018-01-11] MEDS: Multivitamin Tab PO SCH (08:35)
[2018-01-11] MEDS: Atorvastatin Calcium 10 MG TAB PO SCH (20:40)
--- NOTE | 2018-01-11 23:28 | Progress Notes ---
DATE: 01/11/2018 SUBJECTIVE: Staff was spoken to. The patient is interviewed. Mood is noted to be irritable. Affect is constricted. Insight and judgment at this time are noted to be still impaired. Impulse control is noted to be poor. The patient is screaming and yelling. The patient has no insight into her illness. Continues to be very paranoid and impulsive. The patient is not ready to be discharged to a lower level of care. ASSESSMENT: The patient is still grossly psychotic. PLAN: To continue the patient with supportive therapy and followup. JOB# [id number]
--- NOTE | 2018-01-12 06:46 | Progress Notes ---
DATE: 01/11/2018 INTERNAL MEDICINE CONSULTATION FOLLOWUP SUBJECTIVE: The patient is a 77-year-old female with past medical history significant diabetes mellitus, angiopathy, neuropathy, COPD, CHF, hypertension, coronary artery disease, peptic ulcer disease, gastritis, arthritis, osteoporosis. CHIEF COMPLAINT: Blood sugar stable. No obvious shortness of breath, no vomiting, no diarrhea, no melena, no hematochezia. OBJECTIVE: VITAL SIGNS: Stable. LUNGS: Show occasional rhonchi, occasional crepitation, no bronchial breathing. HEART: First and second heart sounds normal. No gallop. Systolic present. ABDOMEN: Soft. Bowel sounds are present and good. EXTREMITIES: Show arthritis. NEUROLOGIC: The patient has dementia. PLAN: Continue current medical management. Psych consult reviewed. JOB# [id number]
[2018-01-12] MEDS: Ferrous Sulfate 325 MG TAB PO SCH ×2 (08:24→17:38)
[2018-01-12] MEDS: Multivitamin Tab PO SCH (08:25)
[2018-01-12] MEDS: Atorvastatin Calcium 10 MG TAB PO SCH (20:39)
--- NOTE | 2018-01-12 23:14 | Progress Notes ---
DATE: 01/12/2018 INTERNAL MEDICINE CONSULTATION FOLLOWUP SUBJECTIVE: The patient is a 77-year-old female. Current medical problems include diabetes mellitus, angiopathy, neuropathy, COPD, CHF, hypertension, coronary artery disease, peptic ulcer disease, arthritis, osteoporosis. No new symptoms. Blood sugars are stable. OBJECTIVE: VITAL SIGNS: Stable. LUNGS: Show occasional rhonchi, occasional crepitation, no bronchial breathing. HEART EXAM: First and second heart sound normal. No gallop. Systolic present. ABDOMEN: Soft. Bowel sounds good. EXTREMITIES: Show arthritis. NEUROLOGIC: The patient has dementia. PLAN: Continue current medical management. Psych consult reviewed. JOB# [id number]
--- NOTE | 2018-01-13 01:32 | Progress Notes ---
DATE: 01/12/2018 SUBJECTIVE: Staff was spoken to. The patient is interviewed. Mood is noted to be irritable. Affect is constricted. Insight and judgment at this time are noted to be still impaired. Impulse control is noted to be poor. Coping skills are noted to be very poor. The patient has been having difficult time to cope with the stress. The patient continues to be very paranoid and very impulsive. The patient is not able to contract for safety. No side effects to the medications are noted. ASSESSMENT: The patient is still grossly psychotic. PLAN: To encouraged the patient to verbalize the concerns and the patient has been grossly psychotic and impulsive, it is decided to increase the dose on the Risperdal to 3 mg twice a day and follow the patient with the supportive therapy. JOB# [id number]
[2018-01-13] MEDS: Multivitamin Tab PO SCH (08:29)
[2018-01-13] MEDS: Ferrous Sulfate 325 MG TAB PO SCH ×2 (08:30→17:09)
[2018-01-13] MEDS: Atorvastatin Calcium 10 MG TAB PO SCH (20:53)
--- NOTE | 2018-01-14 01:14 | Progress Notes ---
DATE: 01/13/2018 SUBJECTIVE: Staff was spoken to. The patient is interviewed. Mood is noted to be irritable. Affect is constricted. The patient is still talking to self, not making much sense. The patient's coping skills at this time are noted to be very poor. No side effects to the medications are noted. The patient is currently on the Depakote as well as the Risperdal, she has been taking 6 mg of Risperdal a day. Even with these medications, the patient is still having difficult time and hence it is decided to add a little bit of the Trileptal to the patient to see if it is going to be of some help to decrease the mood swings. ASSESSMENT: The patient is still impulsive and not able to contract for safety. PLAN: To continue the patient with the supportive therapy and add the Trileptal 150 mg twice a day and follow the patient up with the supportive therapy. JOB# [id number]
--- NOTE | 2018-01-14 06:34 | Progress Notes ---
DATE: 01/13/2018 INTERNAL MEDICINE CONSULTATION FOLLOWUP SUBJECTIVE: The patient is a 77-year-old female. Current medical problems include diabetes mellitus, COPD, CHF, hypertension, coronary artery disease, peptic ulcer, gastritis, and arthritis. OBJECTIVE: VITAL SIGNS: Stable. LUNGS: Show bilateral rhonchi with crepitation, no bronchial breathing. HEART: First and second heart sounds are normal. ABDOMEN: Soft, bowel sounds present. EXTREMITIES: Show arthritis. NEUROLOGIC: The patient has dementia. ASSESSMENT AND PLAN: Continue current medical management. Psych consult reviewed. JOB# [id number]
[2018-01-14] MEDS: Multivitamin Tab PO SCH (08:58)
[2018-01-14] MEDS: Ferrous Sulfate 325 MG TAB PO SCH ×2 (08:59→16:49)
--- NOTE | 2018-01-14 13:13 | Progress Notes ---
DATE: 01/14/2018 SUBJECTIVE: Staff was spoken to. The patient is interviewed. Mood is noted to be irritable. Affect is constricted. The patient is less irritable compared to yesterday. Mood swings are coming under control. No side effects to the medications are noted. Insight and judgment are noted to be still impaired. The patient is currently on The Risperdal as well as Depakote and Trileptal. ASSESSMENT: The patient's mood swings are coming under control. PLAN: To continue the patient with the supportive therapy and followup. JOB# [id number]
[2018-01-14] MEDS: Atorvastatin Calcium 10 MG TAB PO SCH (21:24)
[2018-01-15] MEDS: Multivitamin Tab PO SCH (08:46)
[2018-01-15] MEDS: Ferrous Sulfate 325 MG TAB PO SCH ×2 (08:46→17:11)
[2018-01-15 09:47] LABS: ALB/GLOB RATIO 1.2 (1.0-1.8); ALBUMIN 3.4 gm/dL (3.7-5.3); ALKALINE PHOSPHATASE 47 U/L (34-104); ANION GAP 10.7 (7.0-16.0); BILIRUBIN,TOTAL 0.4 mg/dL (0.3-1.0); BUN - UREA NITROGEN 14 mg/dL (7-25); CARBON DIOXIDE 27.8 mEq/L (21.0-31.0); CHLORIDE 102 mEq/L (98-107); CREATININE - SERUM 0.8 mg/dL (0.6-1.2); GLUCOSE 125 mg/dL (70-105); POTASSIUM SERUM 3.5 mEq/L (3.5-5.1); SGOT 17 U/L (13-39); SGPT/ALT 13 U/L (7-52); SODIUM SERUM 137 mEq/L (136-145); TOTAL PROTEIN,SERUM 6.2 gm/dL (6.0-8.3)
--- NOTE | 2018-01-15 20:39 | Progress Notes ---
DATE: 01/15/2018 PSYCHIATRIC PROGRESS NOTE SUBJECTIVE: Staff was spoken to. The patient is interviewed. Mood is noted to be less irritable. Affect is appropriate. Not suicidal or homicidal. Coping skills are noted to be improving. The patient has been able to verbalize the concerns rather than to act out. ASSESSMENT: The patient is stabilizing. PLAN: To discharge the patient today for followup on outpatient basis. [facility]# [id number]
--- NOTE | 2018-01-15 20:56 | Progress Notes ---
DATE: 01/15/2018 INTERNAL MEDICINE CONSULTATION FOLLOWUP SUBJECTIVE: The patient is a 77-year-old female. Current medical problems include diabetes mellitus, angiopathy, neuropathy, COPD, CHF, hypertension, coronary artery disease, peptic ulcer disease, arthritis, osteoporosis. No new symptoms. Blood sugars are stable. OBJECTIVE: VITAL SIGNS: Stable. LUNGS: Show occasional rhonchi, occasional crepitation, no bronchial breathing. HEART: First and second heart sounds normal. No gallop. Systolic present. ABDOMEN: Soft. Bowel sounds are present and good. EXTREMITIES: Show arthritis. NEUROLOGIC: The patient has dementia. PLAN: Continue current medical management. Psych consult reviewed. JOB# [id number]
== END 2018-01-15 17:30 | DRG 885 ==
LOC: ER 14:03 → GERO 15:17
PROVIDERS: ADMIT Psychiatry & Neurology Psychiatry; ATTEND Psychiatry & Neurology Psychiatry
DX: F25.9 Schizoaffective disorder, unspecified (principal); I11.0 Hypertensive heart disease with heart failure; I50.9 Heart failure, unspecified; J44.9 Chronic obstructive pulmonary disease, unspecified; I25.10 Atherosclerotic heart disease of native coronary artery without angina pectoris; E78.5 Hyperlipidemia, unspecified; M81.0 Age-related osteoporosis without current pathological fracture; M19.90 Unspecified osteoarthritis, unspecified site; K27.9 Peptic ulcer, site unspecified, unspecified as acute or chronic, without hemorrhage or perforation; F03.90 Unspecified dementia, unspecified severity, without behavioral disturbance, psychotic disturbance, mood disturbance, and anxiety; E11.51 Type 2 diabetes mellitus with diabetic peripheral angiopathy without gangrene; E11.40 Type 2 diabetes mellitus with diabetic neuropathy, unspecified; Z88.0 Allergy status to penicillin; Z82.49 Family history of ischemic heart disease and other diseases of the circulatory system; Z88.8 Allergy status to other drugs, medicaments and biological substances
CPT/HCPCS: 36415-UA; 80053-TC; 80061-TC; 80307; 80320-TC; 80329-TC; 81001-TC; 83036-90; 84443-TC; 84484-TC; 85025-TC; 86592-TC; 90899; 93005; G0410; J7051; Z7610